=== PATIENT | female | born 1935 | race American Indian/Alaskan Native ===

== ENCOUNTER 2017-08-09 08:51 | Day surgery (SDC) | payer MEDICARE ==
[~2017-08-09 08:51] MED LIST: ANCEF/STERILE WATER 2 GM/20 ML 2 GM/20 ML SYRINGE IV NR; NACL 0.9% 1000 ML 1,000 ML IV SCH
[2017-08-09] MEDS ORDERED: XYLOCAINE 2% INFILTRATI ONE (09:45)
[2017-08-09] MEDS ORDERED: SUBLIMAZE ONE (09:45)
[2017-08-09] MEDS ORDERED: VERSED ONE (09:45)
[2017-08-09] MEDS ORDERED: HEPARIN 10,000 UNITS/10 ML ONE (09:45)
[2017-08-09] MEDS ORDERED: NACL 0.9% 500 ML 500 ML ONE (09:45)
[2017-08-09] MEDS ORDERED: HEPARIN/NS 5000 UNIT/500ML(CATH LAB) 1,000 ML IR ONE (09:45)
[2017-08-09] MEDS ORDERED: ANCEF/STERILE WATER 2 GM/20 ML 2 GM/20 ML SYRINGE IV ONE (09:46)
[2017-08-09 10:02] LABS: Basophils % (Auto) 0.4 % (0.0-1.8); Eosinophils # (Auto) 0.1 K/mm3 (0.0-0.4); Eosinophils % (Auto) 0.6 % (0.0-4.3); Hematocrit 35.6 % (30.3-42.9); Hemoglobin 11.8 gm/dl (10.1-14.3); Lymphocytes # (Auto) 1.5 K/mm3 (1.2-5.4); Lymphocytes % (Auto) 16.5 % (13.4-35.0); Mean Corpuscular HGB Conc 33 % (30-34); Mean Corpuscular Hemoglobin 30 pg (28-32); Mean Corpuscular Volume 90 fl (79-97); Monocytes # (Auto) 0.8 K/mm3 (0.0-0.8); Monocytes % (Auto) 9.2 % (0.0-7.3); Platelet Count 230 K/mm3 (140-440); Red Blood Count 3.97 M/mm3 (3.65-5.03); Red Cell Distribution Width 13.5 % (13.2-15.2)
[2017-08-09 10:26] LABS: BUN/Creatinine Ratio 14; Blood Urea Nitrogen 10 mg/dL (7-17); Calcium 8.9 mg/dL (8.4-10.2); Hemolysis Index 236
[2017-08-09 10:47] LABS: INR 1.48 (0.87-1.13)
[2017-08-09 10:48] LABS: Partial Thromboplastin Time 58.1 Sec. (24.2-36.6)
--- NOTE | 2017-08-09 13:16 | Short Stay Summary ---
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, PVD Social history: no significant social history, other (detention) - Allergies and Medications Current Medications: Allergies celecoxib [From Celebrex] Allergy (Verified 08/09/17 09:18) Unknown clopidogrel [From Plavix] Allergy (Verified 08/09/17 09:18) Headache lisinopril Allergy (Verified 08/09/17 09:18) Headache Home Medications Medication Instructions Recorded Confirmed Last Taken Type Carvedilol [Coreg] 25 mg PO BID 08/09/17 08/09/17 08/08/17 History 25mg Dabigatran [Pradaxa] 150 mg PO BID 08/09/17 08/09/17 08/08/17 History 150mg Escitalopram [Lexapro] 10 mg PO DAILY 08/09/17 08/09/17 08/08/17 History 10mg Famotidine [Heartburn Prevention] 20 mg PO DAILY 08/09/17 08/09/17 08/08/17 History 20mg Furosemide [Lasix TAB] 20 mg PO DAILY 08/09/17 08/09/17 08/08/17 History 20mg Oxybutynin Chloride [Ditropan Xl] 5 mg PO DAILY 08/09/17 08/09/17 08/08/17 History 5mg Pravastatin [Pravachol] 80 mg PO QHS 08/09/17 08/09/17 08/08/17 History 80mg amLODIPine [Norvasc] 10 mg PO DAILY 08/09/17 08/09/17 08/08/17 History 10mg Active Medications Cefazolin Sodium (Ancef/Sterile Water 2 Gm/20 Ml) 2 gm in 20 mls @ 80 mls/hr IV PREOP NR; Protocol Stop: 08/09/17 23:59 Last Admin: 08/09/17 11:17 Dose: 20 mls Sodium Chloride (Nacl 0.9% 1000 Ml) 1,000 mls @ 42 mls/hr IV DIRECT RAYA - Physical exam General appearance: cachectic Integumentary: no rash HEENT: Atraumatic Lungs: Normal air movement Breasts: deferred Heart: Regular rate Gastrointestinal: normal Female Genitourinary: deferred Rectal Exam: deferred Extremities: abnormal (contracted) - Brief post op/procedure progress note Date of procedure: 08/09/17 Pre-op diagnosis: bilateral PVD with gangrene Post-op diagnosis: same Procedure: Aortagram and BLE angiogram Anesthesia: local Surgeon: MARY LAWSON Estimated blood loss: minimal Pathology: none Condition: stable - Disposition Condition at discharge: Good Disposition: [id number] TO HOME OR SELFCARE Short Stay Discharge Plan Activity: advance as tolerated Weight Bearing Status: Weight Bear as Tolerated Diet: regular Wound: keep clean and dry, per your surgeon's advice, other (paint gangrenous toes with betadine daily) Follow up with: YASMEEN ACEVES MD [Primary Care Provider] - 7 Days
--- NOTE | 2017-08-09 13:21 | Operative Report ---
Operative Report Operative Report: EXAM: AORTOGRAM WITH BILATERAL LOWER EXTREMITY ANGIOGRAPHY CLINICAL INDICATION: BILATERAL LOWER EXTREMITY PVD WITH GANGRENOUS CHANGES TO THE DIGITS DATE: 08/09/2017 PROCEDURE: Following an expiration of the risks, benefits and alternatives; written informed consent was obtained. The procedure was performed in the cathlab. Initial ultrasound evaluation of the patient's left groin demonstrated a patent left common femoral artery. The patient's left groin was prepped and draped in usual sterile fashion. 1% lidocaine was used for anesthesia. Under ultrasound guidance, the left common femoral artery was cannulated with a 7 cm 21-gauge needle. A 0.018 guidewire was advanced centrally. The needle was removed and a micro-sheath placed. The 0.018 guidewire was exchanged for a 0.035 guidewire and the micro-sheath exchanged for a 5 [place] vascular sheath. The 5 [place] Omni flush catheter was advanced over the guidewire to the distal abdominal aorta. Angiography was performed which demonstrates atherosclerotic disease without flow limiting stenosis in the distal abdominal aorta, bilateral common iliac and bilateral external iliac arteries. There is irregularity to the bilateral common femoral arteries at the site of prior bypass grafts. The bifurcation was crossed using Omni flush catheter and Omni flush catheter advanced to the right common femoral artery. Angiography was performed of the leg from this position. There are no named vessels below the knee on the right with the exception of approximately 3 cm of popliteal artery. The remaining flow to the foot is entirely through collaterals. The guidewire was advanced through the catheter and together the catheter and guidewire removed. Angiography was then performed on the left through the previously placed sheath. Images were obtained throughout the leg which again demonstrated no named blood vessels below the knee on the left. There is only collateral flow to the feet. At this point, the catheters, guidewires and sheaths were removed and hemostasis achieved using an Angio-Seal arterial closure device. A compression dressing was also placed. The patient tolerated the procedure well. There were no immediate post procedure complications. A minimal amount of sedation was utilized under the guidance of radiologic nursing. Continuous cardiopulmonary monitoring was utilized. IMPRESSION: 1) Aortogram and bilateral lower extremity angiogram demonstrating no named vessels below the inguinal ligaments. There is only collateral flow below this point. Previously placed femoropopliteal bypass grafts are no longer patent. The only exception of this is approximately 3 cm of popliteal artery on the right leg that fills with collaterals.
[2017-08-09 13:44] VITALS: BP 131/70
== END 2017-08-09 12:30 | disposition home or self-care (01) ==
LOC: CATHLABREC 08:51
PROVIDERS: ATTEND Radiology Diagnostic Radiology
DX: I70.263 Atherosclerosis of native arteries of extremities with gangrene, bilateral legs (principal); I10 Essential (primary) hypertension; G20 Parkinson's disease; K21.9 Gastro-esophageal reflux disease without esophagitis; Z79.899 Other long term (current) drug therapy; Z79.01 Long term (current) use of anticoagulants; Z86.718 Personal history of other venous thrombosis and embolism; Z88.8 Allergy status to other drugs, medicaments and biological substances; Z86.73 Personal history of transient ischemic attack (TIA), and cerebral infarction without residual deficits; Z95.820 Peripheral vascular angioplasty status with implants and grafts
CPT/HCPCS: 36247; 36415; 75625; 75716; 80048; 85025; 85610; 85730; 99156; 99157; C1760; C1769; C1887; J0690; J1644; J2250; J3010; J7040; Q9967